=== PATIENT | female | born 1975 | race Two or more races ===

== ENCOUNTER 2024-03-24 08:00 | Day surgery (SDC) | payer OTHER, BC, SELFPAY ==
[2024-03-23 13:23] LABS: HCG Qualitative,Urine Negative
[2024-03-23 14:28] VITALS: BMI 27.4
[2024-03-24] VITALS (9 sets, daily range): BP systolic 97–123; BP diastolic 61–89; PULSE 51–70; RESP 12–19; TEMP 36.3–36.9; O2SAT 91–98; BMI 27.8
[2024-03-24] MEDS: DEXTROSE 5%-WATER 500 ML 20 ML IV (09:44)
[2024-03-24] MEDS: DiphenhydrAMINE INJ 50 MG/ML VIAL 25 MG IV (09:47)
[2024-03-24] MEDS: ONDANSETRON INJ 2 MG/ML INJ 2 ML 4 MG IV (09:47)
[2024-03-24] MEDS: fentaNYL CIT INJ 50 mCg/ML AMP 2ML (ASD USE ONLY) IV (09:53)
[2024-03-24] MEDS: MIDAZOLAM INJ 1 MG/ML VIAL 2 ML (ASD USE ONLY) 2 MG IV (09:53)
--- NOTE | 2024-03-24 12:16 | SUR.PHASEII ---
1011: Pt received for recovery. Report from Eva LAU. Pt sleepy. Easily aroused. Resp even, unlabored. VS stable. Denies pain. 1038: Pt more awake, alert. VS stable. Denies pain. Sitting up tolerating po fluids with no difficulty swallowing and no n/v. 1056: Pt fully awake, oriented x3. Pt assisted to restroom. Ambulation steady. Pt and stated understanding of discharge instructions. Pt discharged from [facility] in stable condition.
== END 2024-03-24 10:56 | disposition home or self-care (01) ==
PROVIDERS: PCP Internal Medicine; Referring Provider Specialist; Visit Provider Specialist
PROC: 0DBE8ZX Excision of Large Intestine, Via Natural or Artificial Opening Endoscopic, Diagnostic (ICD-10-PCS; CPT 45380; principal; 2024-03-24 09:00)
DX: Z12.11 Encounter for screening for malignant neoplasm of colon (principal); K64.9 Unspecified hemorrhoids; K57.30 Diverticulosis of large intestine without perforation or abscess without bleeding; K63.5 Polyp of colon
CPT/HCPCS: 45385; 81025; A4649; J1200; J2250; J2405; J3010; J7060

== ENCOUNTER 2024-07-06 08:25 | Day surgery (SDC) | payer OTHER, BC, SELFPAY ==
--- NOTE | 2024-07-04 06:30 | EKG_ITS ---
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
[2024-07-04 07:21] VITALS: BMI 26.2
[2024-07-04 09:32] LABS: Basophils # (Auto) 0.1 Thou/mm3 (0.0-0.2); Basophils % (Auto) 1 % (0-2.5); Eosinophils # (Auto) 0.1 Thou/mm3 (0.0-0.5); Eosinophils % (Auto) 1 % (0-10); Hematocrit 45.3 % (36.0-46.0); Hemoglobin 15.1 g/dL (12.0-16.0); Immature Granulocytes % (Auto) 0 % (0-0); Immature Granulocytes Auto 0.02 Thou/mm3 (0.00-0.00); Lymphocytes # (Auto) 1.6 Thou/mm3 (1.0-4.8); Lymphocytes % (Auto) 23 % (10-50); Mean Corpuscular HGB Conc 33.3 g/dl (31.0-37.0); Mean Corpuscular Hemoglobin 30.8 pg (25.0-35.0); Mean Corpuscular Volume 92 fL (80-100); Monocytes # (Auto) 0.5 Thou/mm3 (0.0-0.8); Monocytes % (Auto) 8 % (0-12); Neutrophils # (Auto) 4.7 Thou/mm3 (1.8-7.7); Neutrophils % (Auto) 67 % (37-80); Nucleated Red Blood Cell % 0 /100 WBC (0); Platelet Count 209 Thou/mm3 (140-440); RDW Standard Deviation 45.6 fL (36.4-46.3); Red Blood Count 4.91 Miln/mm3 (4.00-5.20); White Blood Count 7.1 Thou/mm3 (3.6-11.0)
[2024-07-04 09:40] LABS: Partial Thromboplastin Time 25.3 Seconds (22.0-36.0); Prothrombin Time 11.4 Seconds (9.0-12.2)
[2024-07-04 10:10] LABS: Alanine Aminotransferase 15 U/L (10-49); Albumin, Serum 3.8 gm/dL (3.5-5.0); Albumin/Globulin Ratio 1.6 (1.2-2.2); Alkaline Phosphatase 81 U/L (46-116); Anion Gap 7 (7-16); Aspartate Amino Transferase 22 U/L (0-34); BUN/Creatinine Ratio 15 Ratio (12-20); Bilirubin,Total 1.3 mg/dL (0.3-1.2); Blood Urea Nitrogen 12 mg/dL (9-23); Calcium 8.9 mg/dL (8.3-10.6); Calcium (Corrected) 9.1 mg/dL (8.5-10.1); Carbon Dioxide 31.1 mMol/L (20.0-31.0); Chloride 103 mMol/L (98-107); Creatinine (Component) 0.8 mg/dL (0.6-1.3); Estimated Creatinine Clearance 78.3 mL/min (>60); Globulin 2.4 gm/dL (2.3-3.5); Glucose 96 mg/dL (74-106); Osmolality,Calculated 280 (275-295); Sodium 141 mMol/L (136-145); Total Protein 6.2 gm/dL (5.7-8.2); eGFR > 60 See Note
[2024-07-06] VITALS (10 sets, daily range): BP systolic 111–135; BP diastolic 60–75; PULSE 58–88; RESP 12–23; TEMP 36.2–36.6; O2SAT 95–100; BMI 26.4
--- NOTE | 2024-07-06 09:38 | SUR.PREOP ---
States no menses in 2 years. Therefore no HCG ordered.
--- NOTE | 2024-07-06 11:32 | SUR.PHASEI ---
pt arrived to PACU via gurney drowsy but arouses to voice, breathing unlabored, dressing to left lower extremity clean, dry, and intact, pedal pulses present and equal bilaterally, report from Bob LAU, Anel SANCHEZ, and Dr Perdomo
--- NOTE | 2024-07-06 11:35 | SUR.PHASEI ---
1135: received report from JUDI Herrera. pt sleepy but able to open eyes when ask her questions. no s/s of resp. distress or discomfort. no s/s of pain or discomfort. dressing to left leg clean, dry and intact. no bleeding noted. positive CMS: cap refill top left toes less than 2 seconds, positive pulse and able to wiggle toes.
--- NOTE | 2024-07-06 11:35 | SUR.PHASEI ---
report to Danita LAU
--- NOTE | 2024-07-06 11:51 | SUR.PHASEI ---
Ice chips given, tolerate well.
--- NOTE | 2024-07-06 12:05 | PD.SUROPNT ---
Date of Procedure 07/06/24 Pre Op Diagnosis Symptomatic varicose veins left lower extremity Post Op Diagnosis Same as preop diagnosis Procedure Varicose vein excisions of left lower extremity Findings All marked varicose veins are either removed or disrupted Procedure Description With the patient standing the preop area all varicose veins to removed in the left leg were carefully marked with a sharpie pen. The patient was brought to the operating room and general anesthesia was induced. Timeout was performed. Procedure was performed by making a small skin darell with a #11 blade and all the marked areas then bluntly enlarging the incision and serially excising or disrupted veins. After all marked veins were either removed or disrupted and hemostasis was obtained leg was cleaned and Steri-Strips were placed to reapproximate all the incisions. This was performed through 23 separate incisions. Leg was then sterilely dressed and the patient woke up from anesthesia was moved recovery in stable condition Anesthesia other (Laryngeal mask anesthesia) Pathology / specimen Other (Left leg varicose veins) Estimated Blood Loss 50 Condition Stable Disposition PACU Surgeon Mino Arias MD Surgical Staff Operation Date: 07/06/24 12:15 Case Staff Anesthesiologist: Alexi Perdomo RN First Assistant: Kiara Andrade
[2024-07-06] MEDS: fentaNYL CIT INJ 50 mCg/ML AMP 2ML 25 MCG IV (12:06)
--- NOTE | 2024-07-06 12:15 | SUR.PHASEI ---
1215: reported given to JUDI Herrera. pt sleeping at this time. no s/s of resp. distress or discomfort. dressing to left leg clean, dry and intact.
--- NOTE | 2024-07-06 12:15 | SUR.PHASEII ---
pt awake, alert, able to follow commands, breathing unalbored, dressing to left lower extremity clean, dry, and intact, pt sitting up in [employer] eating ice chips without difficulty swallowing or n/v, pedal pulses present and equal bilaterally, report from Danita LAU
--- NOTE | 2024-07-06 13:04 | SUR.PHASEII ---
pt awake, alert, able to follow commands, breathing unalbored, dressing to left lower extremity clean, dry, v/s stable, pedal pulses present and equal bilaterally, discharge instructions given with sister Malini present, all questions answered, pt discharged via wheelchair with all belongings and copies of discharge paperwork.
== END 2024-07-06 13:04 | disposition home or self-care (01) ==
PROVIDERS: Anesthesiology; PCP Internal Medicine; Referring Provider Surgery Vascular Surgery; Visit Provider Surgery Vascular Surgery
PROC: (CPT 37785; principal; 2024-07-06 12:00)
DX: I83.812 Varicose veins of left lower extremity with pain (principal); E11.9 Type 2 diabetes mellitus without complications; Z01.810 Encounter for preprocedural cardiovascular examination; Z98.84 Bariatric surgery status; Z79.84 Long term (current) use of oral hypoglycemic drugs; Z90.49 Acquired absence of other specified parts of digestive tract; Z88.5 Allergy status to narcotic agent
CPT/HCPCS: 37766; 36415; 80053; 85025; 85610; 85730; 93005; A4217; A4649; J0131; J0690; J1100; J1885; J2250; J2405; J2704; J3010; J3490